=== PATIENT | male | born 1995 | race African-American/Black ===

== ENCOUNTER 2017-05-22 01:02 | Emergency (ER) | payer OTHER ==
[2017-05-22] MEDS: KETOROLAC 60 MG/2 ML VIAL (J1885) IM (01:56)
== END 2017-05-22 02:28 | disposition home or self-care (01) ==
LOC: M ED 01:02
DX: S80.01XA Contusion of right knee, initial encounter (principal); W10.8XXA Fall (on) (from) other stairs and steps, initial encounter; Y92.099 Unspecified place in other non-institutional residence as the place of occurrence of the external cause; Y93.01 Activity, walking, marching and hiking
CPT/HCPCS: J1885

== ENCOUNTER 2018-02-02 17:50 | Emergency (ER) | payer OTHER ==
[2018-02-02] MEDS: NS 1,000 ML IV ×2 (18:47)
[2018-02-02] MEDS: diphenhydrAMINE INJ 50MG/ML VIAL (J1200) IV ×2 (18:49)
[2018-02-02] MEDS: KETOROLAC 30 MG/ML VIAL (J1885) IV ×2 (18:49)
[2018-02-02] MEDS: METOCLOPRAMIDE INJ 10MG/2ML VIAL (J2765) IV ×2 (18:49)
[2018-02-02 18:52] LABS: BASO % 0.4 % (0.0-1.0); EOS # 0.1 10^3/uL (0.0-0.50); EOS % 0.8 % (0.0-3.0); HEMATOCRIT 41.2 % (42.0-52.0); HEMOGLOBIN 14.1 g/dl (13.5-17.5); IMMATURE GRANULOCYTE % 0.2 % (0-3.0); LYMPH # 2.8 10^3/uL (1.5-6.5); LYMPH % 30.9 % (24.0-44.0); MEAN CORPUSCULAR HEMOGLOBIN 30.4 pg (27.0-33.0); MEAN CORPUSCULAR HGB CONC 34.2 g/dl (32.0-36.5); MEAN CORPUSCULAR VOLUME 88.8 fl (80.0-96.0); MONO # 0.8 10^3/uL (0.0-0.8); NEUTROPHILS # 5.3 10^3/uL (1.8-7.7); NEUTROPHILS % 58.7 % (36.0-66.0); PLATELET COUNT, AUTOMATED 186 10^3/uL (150-450); RED BLOOD COUNT 4.64 10^6/uL (4.30-6.10); RED CELL DISTRIBUTION WIDTH 11.7 % (11.5-14.5)
[2018-02-02 19:09] LABS: ANION GAP 9 MEQ/L (8-16); BLOOD UREA NITROGEN 15 MG/DL (7-18); CALCIUM LEVEL 8.9 MG/DL (8.5-10.1); CARBON DIOXIDE LEVEL 27 MEQ/L (21-32); CHLORIDE LEVEL 106 MEQ/L (98-107); CREATININE FOR GFR 1.18 MG/DL (0.70-1.30); GLOMERULAR FILTRATION RATE > 60.0 (>60); GLUCOSE, FASTING 74 MG/DL (70-100); MAGNESIUM LEVEL 2.1 MG/DL (1.8-2.4); POTASSIUM SERUM 4.2 MEQ/L (3.5-5.1); SODIUM LEVEL 142 MEQ/L (136-145)
[2018-02-02] MEDS: predniSONE 20 MG TAB PO ×2 (20:30)
[2018-02-02] MEDS: AUGMENTIN 875 MG TAB PO ×2 (20:30)
== END 2018-02-02 20:30 | disposition home or self-care (01) ==
LOC: M ED 17:50
DX: J01.90 Acute sinusitis, unspecified (principal); R51 Headache; R01.1 Cardiac murmur, unspecified; Z82.3 Family history of stroke
CPT/HCPCS: J1200

== ENCOUNTER 2018-11-23 20:37 | Emergency (ER) | payer OTHER ==
[~2018-11-23] VITALS: Ht 180.3 cm; Wt 79.1 kg
[2018-11-23 20:37] VITALS: BP 124/64
[~2018-11-23 20:37] MED LIST: AUGM875T28 PO; NAPR-837 PO; PRED20TA PO; REGL10TA6 PO
== END 2018-11-23 21:19 | disposition home or self-care (01) ==
LOC: M ED 20:37
DX: L72.3 Sebaceous cyst (principal); G43.909 Migraine, unspecified, not intractable, without status migrainosus; R01.1 Cardiac murmur, unspecified